=== PATIENT | female | born 1975 | race American Indian/Alaskan Native ===

== ENCOUNTER 2017-11-06 06:38 | Day surgery (SDC) | payer OTHER ==
[2017-10-29 10:12] VITALS: BMI 37.5
[2017-11-06] MEDS ORDERED: Propofol 10 mg/ml Inj (20 ML) ONE (08:14)
[2017-11-06] MEDS ORDERED: Midazolam 2 MG/2 ML VIAL ONE (08:15)
[2017-11-06] MEDS ORDERED: Lidocaine Hydrochloride 5 ML INJ ONE (08:16)
[2017-11-06] MEDS ORDERED: Rocuronium 10 mg/ml (5 ml) ONE ×2 (08:16→09:19)
[2017-11-06] MEDS ORDERED: Bupivacaine HCl 0.25% PF (10 ml) Inj ONE ×2 (08:54)
[2017-11-06] MEDS ORDERED: HYDROmorphone 0.5 mg/0.5 ml ISec IVP PRN ×2 (10:20→10:40)
--- NOTE | 2017-11-06 10:31 | PCM.SURG1 ---
Surgeon's Initial Post Op Note - Surgeon's Notes Surgeon: Lucia Kemp MD Therapeutic Support Staff: Samuel Liz MD Type of Anesthesia: General LMA Pre-Operative Diagnosis: Multiparity desires permanent tubal sterilzation Operative Findings: multiparous cervix, bilateral fallopain tubes removed, normal appearing uteurs tubes and ovaries bilatearly. Dr Samuel Liz was medical or surgical instrument maker and essential in gaining entry laparascopically , establishing pneuompertioneum, removing fallopian tubes, obtaining hemostaiss, removal all instruments and was present for entire case Post-Operative Diagnosis: same as above Operation Performed: Laparascopic bilateral salpingecotmy Specimen/Specimens Removed: bilateral left and right fallopian tubes Estimated Blood Loss: EBL {In ML}: 25 Blood Products Given: N/A Drains Used: No Drains Post-Op Condition: Good Date of Surgery/Procedure: 11/06/17 Time of Surgery/Procedure: 10:00
[2017-11-06] MEDS ORDERED: Labetalol 25mg/5ml Syringe IVP PRN (10:40)
[2017-11-06] MEDS ORDERED: Lactated Ringer's 1,000 ML IV ONE (12:00)
[2017-11-06 12:19] VITALS: RESP 16
[2017-11-06 14:19] VITALS: BP 141/86; PULSE 83; TEMP 98.3; O2SAT 96
--- NOTE | 2017-11-06 22:16 | OP ---
PROCEDURE DATE: SURGEON: Lucia Kemp MD WARP TESTER: Samuel Liz MD TYPE OF ANESTHESIA: General LMA. PREOPERATIVE DIAGNOSIS: Multiparity, desires permanent tubal sterilization. POSTOPERATIVE DIAGNOSIS: Multiparity, desires permanent tubal sterilization. OPERATIVE FINDINGS: Multiparous cervix, bilateral fallopian tubes removed, normal appearing uterus, tubes, and ovaries bilaterally. Dr. Samuel Liz was instructor adjunct surgical technician, present for entire case, in gaining entry laparoscopically, establishing pneumoperitoneum, removal of fallopian tubes, obtaining hemostasis, removing all instruments and was present for the entire case. OPERATION PERFORMED: Laparoscopic bilateral salpingectomy. SPECIMEN REMOVED: Bilateral right and left fallopian tubes. ESTIMATED BLOOD LOSS: 25 mL. BLOOD PRODUCTS: None. COMPLICATIONS: None. DESCRIPTION OF PROCEDURE: The patient was taken to the operating room where she was given general anesthesia. Once it was found to be adequate, she was placed on the operating table in dorsal supine position with legs supported using stirrups. The patient was then prepped and draped in the usual sterile fashion. A time-out was confirmed correct patient and correct procedure. A red rubber catheter was inserted into the urethra to drain the bladder. Following this, a Foy retractor was placed on the anterior and posterior fornix of the vagina. The cervix was adequately visualized and a single-tooth tenaculum was placed in the anterior lip of the cervix. The uterus was then appropriately measured and HUMI uterine manipulator was then inserted and the balloon was insufflated with 8 mL. Following this, single-tooth tenaculum was removed. There was good hemostasis at the tenaculum puncture site. Surgeon then re-gloved, and attention was then turned to the abdomen in which 0.25 Marcaine was given infraumbilically in a 5 mm skin incision. Following this, a skin incision was made with the scalpel. The skin was then tented up with bilateral Daily clamps and a Veress needle was then inserted. There was noted. The confirmation of placement was performed with a saline test. CO2 gas was then insufflated to a normal opening pressure and abdomen was then insufflated to a pressure of 15 mmHg. Following this, the 5-mm trocar laparoscope was then inserted under direct visualization and there was good hemostasis noted and visualization of peritoneal cavity which appeared grossly normal. Following this, two 5 mm laparoscopic ports were then inserted in the right and left lower quadrant after 0.25 Marcaine under direct visualization. The patient was then placed in a Trendelenburg position. The distal fimbriated end was grasped with laparoscopic grasper and the mesosalpinx was then cauterized along the entire length of the tube using the LigaSure device upto the cornua of the tube on both the left and right side with good hemostasis on either side. The specimens were then removed. All instruments removed was irrigated and there was good hemostasis noted. At the end of the procedure, all needle, sponge, and instrument counts were noted and correct x2. The HUMI uterine manipulator was then removed. All needle, sponge, and instrument counts were noted and correct x2. The patient tolerated the procedure well and was transferred to the recovery room in stable condition. Lucia Kemp MD
== END 2017-11-06 14:27 | disposition home or self-care (01) ==
LOC: C.SDS 06:38
PROVIDERS: ATTEND Obstetrics & Gynecology
DX: Z30.2 Encounter for sterilization (principal)
CPT/HCPCS: 58661; 88302; J1170; J1885; J2001; J2250; J2405; J2704; J3010; J7120